=== PATIENT | male | born 1985 | race Caucasian/White ===

== ENCOUNTER 2018-10-14 22:54 | Emergency (ER) | payer OTHER ==
[~2018-10-14] VITALS: Ht 188 cm; Wt 99.8 kg
[2018-10-14 23:01] VITALS: BP_SYST 138
== END 2018-10-14 23:05 ==
LOC: SED 22:54
DX: Z02.89 Encounter for other administrative examinations (principal); F10.10 Alcohol abuse, uncomplicated; V43.52XA Car driver injured in collision with other type car in traffic accident, initial encounter; Y93.89 Activity, other specified; Y92.89 Other specified places as the place of occurrence of the external cause; Y99.8 Other external cause status
CPT/HCPCS: 99283